=== PATIENT | female | born 1970 | race Caucasian/White ===

== ENCOUNTER 2017-07-12 17:37 | Emergency (ER) | payer OTHER ==
[2017-07-12] MEDS ORDERED: SODIUM CHLORIDE 0.9% 1,000 ML IV SCH (18:18)
[2017-07-12] MEDS ORDERED: ACETAMINOPHEN TAB 500 MG TAB PO STA (18:18)
[2017-07-12] MEDS: SODIUM CHLORIDE 0.9% 500 ML IV SCH ×3 (18:44→21:25)
--- NOTE | 2017-07-12 18:46 | ED ---
General Adult HPI - General Source: patient Mode of arrival: wheelchair Limitations: no limitations <Lebron Méndez - Last Filed: 07/12/17 22:47> <Paolo Fang - Last Filed: 07/13/17 00:07> - General Chief complaint: Fever Stated complaint: Body Aches/Sweating Time Seen by Provider: 07/12/17 18:12 - History of Present Illness Initial comments: This is a 47-year-old female with a history of viral meningitis who presents emergency department for generalized malaise, body aches, sore throat, and headache. She states that her symptoms started last night and it worsened until today. She states that the headache is generalized and does occasionally radiate down into her neck however is not as severe as last time. She states that she does have some associated sore throat. Her 3-year-old granddaughter was recently treated for strep. She denies any nasal congestion or earache. She does admit to a little bit of a cough but no shortness of breath. No nausea , vomiting, or diarrhea. No dysuria or hematuria. She states that she came in for further evaluation of her symptoms. (Lebron Méndez) - Related Data Home Medications Medication Instructions Recorded Confirmed ALPRAZolam [Xanax] 0.5 mg PO TID PRN 06/22/15 07/12/17 Albuterol Sulfate [Proair Hfa] 1 - 2 puff INHALATION RT-Q6H PRN 06/22/15 Budesonide/Formoterol Fumarate 2 puff INHALATION RT-BID 06/22/15 07/12/17 [Symbicort 160-4.5 Mcg Inhaler] Ibuprofen [Motrin] 800 mg PO TID PRN 07/12/17 07/12/17 diphenhydrAMINE HCL [Benadryl] 50 mg PO TID PRN 07/12/17 07/12/17 Allergies Allergy/AdvReac Type Severity Reaction Status Date / Time No Known Allergies Allergy Verified 07/12/17 19:12 Review of Systems ROS Other: All systems not noted in ROS Statement are negative. <Lebron Méndez - Last Filed: 07/12/17 22:47> ROS Other: All systems not noted in ROS Statement are negative. <Paolo Fang - Last Filed: 07/13/17 00:07> ROS Statement: Those systems with pertinent positive or pertinent negative responses have been documented in the HPI. Past Medical History Past Medical History: Asthma Additional Past Medical History / Comment(s): anxiety History of Any Multi-Drug Resistant Organisms: None Reported Past Surgical History: No Surgical Hx Reported Past Anesthesia/Blood Transfusion Reactions: No Reported Reaction Past Psychological History: Anxiety Smoking Status: Current every day smoker Past Alcohol Use History: Rare Past Drug Use History: None Reported - Past Family History Mother Family Medical History: Cancer, Myocardial Infarction (DC) Additional Family Medical History / Comment(s): migraine, of a brain tumor at age 49 yrs Father History Unknown: Yes Additional Family Medical History / Comment(s): when pt was an . <Rashawn Méndezson - Last Filed: 07/12/17 22:47> General Exam Limitations: no limitations <Rashawn Méndezson - Last Filed: 07/12/17 22:47> General appearance: alert, in no apparent distress Head exam: Present: atraumatic, normocephalic, normal inspection Eye exam: Present: normal appearance, PERRL, EOMI. Absent: scleral icterus, conjunctival injection, periorbital swelling ENT exam: Present: normal exam, mucous membranes moist Neck exam: Present: normal inspection. Absent: tenderness, meningismus, lymphadenopathy Respiratory exam: Present: normal lung sounds bilaterally. Absent: respiratory distress, wheezes, rales, rhonchi, stridor Cardiovascular Exam: Present: regular rate, normal rhythm, normal heart sounds. Absent: systolic murmur, diastolic murmur, rubs, gallop, clicks GI/Abdominal exam: Present: soft, normal bowel sounds. Absent: distended, tenderness, guarding, rebound, rigid Extremities exam: Present: normal inspection, full ROM, normal capillary refill. Absent: tenderness, pedal edema, joint swelling, calf tenderness Back exam: Present: normal inspection Neurological exam: Present: alert, oriented X3, CN II-XII intact Psychiatric exam: Present: normal affect, normal mood Skin exam: Present: warm, dry, intact, normal color. Absent: rash <Paolo Fang - Last Filed: 07/13/17 00:07> - General Exam Comments Initial Comments: Constitutional: Awake alert Appears comfortable Head: Normocephalic atraumatic Eyes: no conjunctival injection No scleral icterus EOMI pupils 4 mm reactive bilaterally ENT no rhinorrhea, mild pharyngeal erythema without exudate Neck: No JVD Supple, no rigidity or meningismus, no cervical adenopathy was palpated Heart: Regular rate rhythm normal S1-S2 no murmurs Lungs: Patient has right sided expiratory wheezes without any rhonchi or rales Abdomen: Soft nondistended nontender Extremities: Non edematous DP pulses intact Radial pulses intact Neuro: A&Ox3 No focal neurologic deficits Psych: Appropriate mood and affect (Lebron Méndez) Course <Lebron Méndez - Last Filed: 07/12/17 22:47> <Paolo Fang - Last Filed: 07/13/17 00:07> Vital Signs 07/12/17 07/12/17 07/12/17 17:48 20:09 20:52 Temperature 102.2 F H Pulse Rate 100 65 81 Respiratory 18 16 16 Rate Blood Pressure 121/48 90/50 77/45 O2 Sat by Pulse 96 95 96 Oximetry 07/12/17 07/12/17 07/12/17 21:26 21:51 22:36 Temperature 98.3 F Pulse Rate 70 67 68 Respiratory 18 16 16 Rate Blood Pressure 106/56 103/56 90/52 O2 Sat by Pulse 97 97 97 Oximetry 07/12/17 23:39 Temperature Pulse Rate 64 Respiratory 18 Rate Blood Pressure 100/56 O2 Sat by Pulse 96 Oximetry - Reevaluation(s) Reevaluation #1: 07/12/17 22:48 and LP performed at bedside and tolerated well. Results will be pending and signed out to night team for follow-up. 07/12/17 22:48 (Lebron Méndez) Reevaluation #2: 07/13/17 00:06 Patient is reevaluated received in signout, lab work is returning back negative , no source of infection found, lumbar puncture has returned negative's cerebral spinal fluid. Results are explained to patient, questions were answered. Patient okay for discharge (Paolo Fang) EKG Findings - EKG Comments: EKG Findings:: EKG showing normal sinus rhythm with rate of 70. No abnormal ST segment changes or T-wave inversion. QTC is 438. Other intervals normal. No ectopy. <Lebron Méndez - Last Filed: 07/12/17 22:47> Procedures - Lumbar Puncture Consent Obtained: written consent Time Out Performed: Yes Indication for Procedure: fever work up Patient Position: left lateral decubitus Local Anesthetic Used: Lidocaine 1% Spinal Needle Gauge: 20G Spinal Needle Length: 3in Interspace Used: L3-L4 Fluid Initially Obtained: clear, other ([place]) Complications: none Patient Tolerated Procedure: well <Lebron Méndez - Last Filed: 07/12/17 22:47> Medical Decision Making - Lab Data Result diagrams: 07/12/17 18:30 07/12/17 18:30 <Lebron Méndez - Last Filed: 07/12/17 22:47> - Lab Data Result diagrams: 07/12/17 18:30 07/12/17 18:30 <Paolo Fang - Last Filed: 07/13/17 00:07> - Medical Decision Making 47 female to ER with viral, febrile syndrome. The patient has negative results across the board. We'll treat with Motrin and Tylenol for fever control, increase fluid intake and give antihistamine for sinus symptoms (Paolo Fang) - Lab Data Lab Results 07/12/17 07/12/17 07/12/17 Range/Units 18:30 18:30 18:30 WBC 5.4 (3.8-10.6) k/uL RBC 4.17 (3.80-5.40) m/uL Hgb 13.5 (11.4-16.0) gm/dL Hct 41.9 (34.0-46.0) % MCV 100.7 H (80.0-100.0) fL MCH 32.5 (25.0-35.0) pg MCHC 32.3 (31.0-37.0) g/dL RDW 15.3 (11.5-15.5) % Plt Count 242 (150-450) k/uL Neutrophils % 72 % Lymphocytes % 17 % Monocytes % 8 % Eosinophils % 2 % Basophils % 0 % Neutrophils # 3.9 (1.3-7.7) k/uL Lymphocytes # 0.9 L (1.0-4.8) k/uL Monocytes # 0.4 (0-1.0) k/uL Eosinophils # 0.1 (0-0.7) k/uL Basophils # 0.0 (0-0.2) k/uL Macrocytosis Slight PT (9.0-12.0) sec INR (<1.2) APTT (22.0-30.0) sec Sodium 136 L (137-145) mmol/L Potassium 3.8 (3.5-5.1) mmol/L Chloride 106 (98-107) mmol/L Carbon Dioxide 20 L (22-30) mmol/L Anion Gap 10 mmol/L BUN 8 (7-17) mg/dL Creatinine 0.90 (0.52-1.04) mg/dL Est GFR (MDRD) Af Amer >60 (>60 ml/min/1.73 sqM) Est GFR (MDRD) Non-Af >60 (>60 ml/min/1.73 sqM) Glucose 89 (74-99) mg/dL Plasma Lactic Acid Miguel (0.7-2.0) mmol/L Calcium 8.9 (8.4-10.2) mg/dL Total Bilirubin 0.4 (0.2-1.3) mg/dL AST 21 (14-36) U/L ALT 36 (9-52) U/L Alkaline Phosphatase 65 (38-126) U/L Total Protein 6.3 (6.3-8.2) g/dL Albumin 3.7 (3.5-5.0) g/dL Urine Color Urine Appearance (Clear) Urine pH (5.0-8.0) Ur Specific [place] (1.001-1.035) Urine Protein (Negative) Urine Glucose (UA) (Negative) Urine Ketones (Negative) Urine Blood (Negative) Urine Nitrite (Negative) Urine Bilirubin (Negative) Urine Urobilinogen (<2.0) mg/dL Ur Leukocyte Esterase (Negative) CSF Tube Number CSF Volume CSF Appearance CSF Color CSF RBC (0-10) u/L CSF Tot Nucleated Cells (0-5) u/L CSF Crenated Cells % CSF Fresh RBCs % CSF Glucose (40-70) mg/dL CSF Total Protein (12-60) mg/dL Influenza Type A RNA (Not Detectd) Influenza Type B (PCR) (Not Detectd) Group A Strep Rapid Negative (Negative) 1007/12/17 07/12/17 Range/Units 18:30 18:30 18:30 WBC (3.8-10.6) k/uL RBC (3.80-5.40) m/uL Hgb (11.4-16.0) gm/dL Hct (34.0-46.0) % MCV (80.0-100.0) fL MCH (25.0-35.0) pg MCHC (31.0-37.0) g/dL RDW (11.5-15.5) % Plt Count (150-450) k/uL Neutrophils % % Lymphocytes % % Monocytes % % Eosinophils % % Basophils % % Neutrophils # (1.3-7.7) k/uL Lymphocytes # (1.0-4.8) k/uL Monocytes # (0-1.0) k/uL Eosinophils # (0-0.7) k/uL Basophils # (0-0.2) k/uL Macrocytosis PT 10.1 (9.0-12.0) sec INR 1.0 (<1.2) APTT 26.1 (22.0-30.0) sec Sodium (137-145) mmol/L Potassium (3.5-5.1) mmol/L Chloride (98-107) mmol/L Carbon Dioxide (22-30) mmol/L Anion Gap mmol/L BUN (7-17) mg/dL Creatinine (0.52-1.04) mg/dL Est GFR (MDRD) Af Amer (>60 ml/min/1.73 sqM) Est GFR (MDRD) Non-Af (>60 ml/min/1.73 sqM) Glucose (74-99) mg/dL Plasma Lactic Acid Miguel 0.7 (0.7-2.0) mmol/L Calcium (8.4-10.2) mg/dL Total Bilirubin (0.2-1.3) mg/dL AST (14-36) U/L ALT (9-52) U/L Alkaline Phosphatase (38-126) U/L Total Protein (6.3-8.2) g/dL Albumin (3.5-5.0) g/dL Urine Color Urine Appearance (Clear) Urine pH (5.0-8.0) Ur Specific [place] (1.001-1.035) Urine Protein (Negative) Urine Glucose (UA) (Negative) Urine Ketones (Negative) Urine Blood (Negative) Urine Nitrite (Negative) Urine Bilirubin (Negative) Urine Urobilinogen (<2.0) mg/dL Ur Leukocyte Esterase (Negative) CSF Tube Number CSF Volume CSF Appearance CSF Color CSF RBC (0-10) u/L CSF Tot Nucleated Cells (0-5) u/L CSF Crenated Cells % CSF Fresh RBCs % CSF Glucose (40-70) mg/dL CSF Total Protein (12-60) mg/dL Influenza Type A RNA Not Detected (Not Detectd) Influenza Type B (PCR) Not Detected (Not Detectd) Group A Strep Rapid (Negative) 07/12/17 07/12/17 Range/Units 20:47 22:19 WBC (3.8-10.6) k/uL RBC (3.80-5.40) m/uL Hgb (11.4-16.0) gm/dL Hct (34.0-46.0) % MCV (80.0-100.0) fL MCH (25.0-35.0) pg MCHC (31.0-37.0) g/dL RDW (11.5-15.5) % Plt Count (150-450) k/uL Neutrophils % % Lymphocytes % % Monocytes % % Eosinophils % % Basophils % % Neutrophils # (1.3-7.7) k/uL Lymphocytes # (1.0-4.8) k/uL Monocytes # (0-1.0) k/uL Eosinophils # (0-0.7) k/uL Basophils # (0-0.2) k/uL Macrocytosis PT (9.0-12.0) sec INR (<1.2) APTT (22.0-30.0) sec Sodium (137-145) mmol/L Potassium (3.5-5.1) mmol/L Chloride (98-107) mmol/L Carbon Dioxide (22-30) mmol/L Anion Gap mmol/L BUN (7-17) mg/dL Creatinine (0.52-1.04) mg/dL Est GFR (MDRD) Af Amer (>60 ml/min/1.73 sqM) Est GFR (MDRD) Non-Af (>60 ml/min/1.73 sqM) Glucose (74-99) mg/dL Plasma Lactic Acid Miguel (0.7-2.0) mmol/L Calcium (8.4-10.2) mg/dL Total Bilirubin (0.2-1.3) mg/dL AST (14-36) U/L ALT (9-52) U/L Alkaline Phosphatase (38-126) U/L Total Protein (6.3-8.2) g/dL Albumin (3.5-5.0) g/dL Urine Color Colorless Urine Appearance Clear (Clear) Urine pH 5.0 (5.0-8.0) Ur Specific [place] 1.001 (1.001-1.035) Urine Protein Negative (Negative) Urine Glucose (UA) Negative (Negative) Urine Ketones Trace H (Negative) Urine Blood Negative (Negative) Urine Nitrite Negative (Negative) Urine Bilirubin Negative (Negative) Urine Urobilinogen <2.0 (<2.0) mg/dL Ur Leukocyte Esterase Negative (Negative) CSF Tube Number 4 CSF Volume 1.0 CSF Appearance Hazy CSF Color [place] CSF RBC 744 H (0-10) u/L CSF Tot Nucleated Cells 2 (0-5) u/L CSF Crenated Cells 80 % CSF Fresh RBCs 20 % CSF Glucose 52 (40-70) mg/dL CSF Total Protein 56 (12-60) mg/dL Influenza Type A RNA (Not Detectd) Influenza Type B (PCR) (Not Detectd) Group A Strep Rapid (Negative) Disposition <Lebron Méndez - Last Filed: 07/12/17 22:47> <Paolo Fang - Last Filed: 07/13/17 00:07> Clinical Impression: Viral infection, Fever Disposition: HOME SELF-CARE Condition: Good Instructions: Fever in Adults (ED) Referrals: Avery Maloney MD [Primary Care Provider] - 1-2 days
[2017-07-12 18:48] LABS: Basophils % (A) 0 %; Eosinophils # (A) 0.1 k/uL (0-0.7); Eosinophils % (A) 2 %; HCT 41.9 % (34.0-46.0); HDW 2.17; HGB 13.5 gm/dL (11.4-16.0); Luc # (Auto) 0.09; Luc % (Auto) 2; Lymphocytes # (A) 0.9 k/uL (1.0-4.8); Lymphocytes % (A) 17 %; MCH 32.5 pg (25.0-35.0); MCHC 32.3 g/dL (31.0-37.0); MCV 100.7 fL (80.0-100.0); Macrocytosis Slight; Mean Platelet Volume 7.4; Monocytes # (A) 0.4 k/uL (0-1.0); Monocytes % (A) 8 %; Neutrophils # (A) 3.9 k/uL (1.3-7.7); Neutrophils % (A) 72 %; RBC 4.17 m/uL (3.80-5.40); RDW 15.3 % (11.5-15.5); WBC 5.4 k/uL (3.8-10.6); WBC (Perox) 5.56
[2017-07-12 18:56] LABS: ALT 36 U/L (9-52); AST 21 U/L (14-36); Alkaline Phosphatase 65 U/L (38-126); Anion Gap 10 mmol/L; Blood Urea Nitrogen 8 mg/dL (7-17); Calcium 8.9 mg/dL (8.4-10.2); Carbon Dioxide 20 mmol/L (22-30); Chloride 106 mmol/L (98-107); Glucose 89 mg/dL (74-99); Non-African American GFR(MDRD) >60 (>60 ml/min/1.73 sqM); Potassium 3.8 mmol/L (3.5-5.1); Sodium 136 mmol/L (137-145); Total Bilirubin 0.4 mg/dL (0.2-1.3); Total Protein 6.3 g/dL (6.3-8.2)
[2017-07-12 18:57] LABS: Partial Thromboplastin Time 26.1 sec (22.0-30.0); Prothrombin Time 10.1 sec (9.0-12.0)
--- NOTE | 2017-07-12 19:23 | CT ---
EXAMINATION TYPE: CT brain wo con DATE OF EXAM: 07/12/2017 COMPARISON: 06/21/2015 HISTORY: Patient complains of headache, light sensitivity, and weakness. CT DLP: 771.5 mGycm. Automated Exposure Control for Dose Reduction was Utilized. TECHNIQUE: CT scan of the head is performed without contrast. FINDINGS: Ventricles have normal size. There is no mass effect nor midline shift. There is no sign o f intracranial hemorrhage. There is widening of the subarachnoid space on the right side of the brain stem without evidence of a mass. The calvarium is intact. CONCLUSION: Large cistern at the skull base on the right side without change compared to old exam. This is probab ly normal variation. No acute intracranial abnormality.
--- NOTE | 2017-07-12 19:26 | XR ---
EXAMINATION TYPE: XR chest 2V DATE OF EXAM: 07/12/2017 COMPARISON: 12/10/2013 HISTORY: Fever TECHNIQUE: Frontal and lateral views of the chest are obtained. FINDINGS: Heart and mediastinum are normal. Lungs are clear. Diaphragm is normal. Bony thorax is int act. IMPRESSION: Normal chest. No change.
[2017-07-12] MEDS ORDERED: VANCOMYCIN IV PER PHARMACY 1 EACH MISC MISCELLANE PRN (20:54)
[2017-07-12] MEDS ORDERED: SODIUM CHLORIDE 0.9% 1,000 ML IV STA (20:54)
[2017-07-12] MEDS ORDERED: SODIUM CHLORIDE 0.9% 1,000 ML IV ONE (20:54)
[2017-07-12] MEDS ORDERED: cefTRIAXone 2,000 MG in SODIUM CHLORIDE 0.9% 100 ML IVPB STA (20:57)
[2017-07-12 21:00] LABS: Appearance,Urine Clear (Clear); Bilirubin,Urine Negative (Negative); Glucose,Urine (UA) Negative (Negative); Ketones,Urine Trace (Negative); Leukocyte Esterase,Urine Negative (Negative); Nitrite,Urine Negative (Negative); Protein,Urine Negative (Negative); Specific Gravity,Urine 1.001 (1.001-1.035); UA Billing (MACRO vs. MICRO) CHEM; Urobilinogen,Urine <2.0 mg/dL (<2.0)
[2017-07-12] MEDS ORDERED: VANCOMYCIN 1,500 MG in SODIUM CHLORIDE 0.9% 250 ML IVPB ONE (21:30)
[2017-07-12 22:41] LABS: Glucose,CSF 52 mg/dL (40-70)
[2017-07-12 23:09] LABS: Appearance,CSF Hazy
[2017-07-12 23:10] LABS: Red Blood Cell, CSF Crenated 80 %; Red Blood Cell, CSF Fresh 20 %
[2017-07-12 23:40] VITALS: RESP 18
[2017-07-13 00:29] VITALS: BP 94/55; PULSE 68; TEMP 97
[2017-07-13] MEDS ORDERED: VANCOMYCIN 1,250 MG in SODIUM CHLORIDE 0.9% 250 ML IVPB SCH (09:00)
== END 2017-07-13 00:29 | disposition home or self-care (01) ==
LOC: EC 17:37
DX: B34.9 Viral infection, unspecified (principal); R50.9 Fever, unspecified; R51 Headache; J45.909 Unspecified asthma, uncomplicated; F17.200 Nicotine dependence, unspecified, uncomplicated; Z79.51 Long term (current) use of inhaled steroids
CPT/HCPCS: 99284 ×2; 62270 ×2; 96365 ×2; 96366 ×3; 96361 ×4; 36415; 93005; 87529; 84157; 80053; 82945; 83605; 85025; 85610; 85730; 89050; 81003; 87040; 87070; 87086; 87205; 87081; 87430; 87502; 71020; 70450; J3370; J0696